=== PATIENT | female | born 1970 | race Caucasian/White ===

== ENCOUNTER 2024-10-13 08:22 | Observation (INO) ==
[2024-10-09 15:28] LABS: Basophils # (Auto) 0.02 K/mcL (0.00-0.30); Basophils % (Auto) 0.3 % (0.0-2.0); Eosinophils # (Auto) 0.17 K/mcL (0.00-0.70); Eosinophils % (Auto) 2.1 % (0.0-7.0); Hematocrit 37.9 % (34.1-44.9); Lymphocytes # (Auto) 2.76 K/mcL (1.50-4.80); Lymphocytes % (Auto) 34.9 % (15.5-49.0); Mean Cell Volume 87.7 fL (80.0-100.0); Mean Corpuscular HGB Conc 31.7 g/dL (31.0-36.0); Mean Platelet Volume 10.2 fL (8.8-12.5); Monocytes # (Auto) 0.55 K/mcL (0.10-0.90); Neutrophils % (Auto) 55.1 % (38.0-78.0); Platelet Count 226 K/mcL (140-440); RBC 4.32 M/mcL (3.59-5.38); Red Cell Distribution Width 12.7 % (11.5-14.5); WBC 7.9 K/mcL (4.5-11.0)
[2024-10-09 15:38] LABS: Prothrombin Time 13.5 sec (11.9-14.5)
[2024-10-09 15:48] LABS: ALT/SGPT 11 U/L (<40); AST/SGOT 20 U/L (<32); Albumin 4.3 gm/dL (3.2-5.2); Albumin/Globulin Ratio 1.3 (1.0-2.3); Alkaline Phosphatase 83 U/L (39-117); Bilirubin,Total 0.2 mg/dL (0.1-1.0); Blood Urea Nitrogen 18 mg/dL (6-20); Calcium 9.5 mg/dL (8.6-10.4); Carbon Dioxide 26 mmol/L (22-30); Chloride 103 mmol/L (96-108); Globulin 3.4 gm/dL (2.2-3.7); Glomerular Filtration Rate 97; Glucose 103 mg/dL (70-105); Potassium 4.5 mmol/L (3.3-5.1); Sodium 140 mmol/L (133-145)
[~2024-10-13 08:22] MED LIST: DEXAMETHASONE 10 MG/ML VIAL ONE; FAMOTIDINE/PF 20 MG/2 ML VIAL IV ONE; GLYCOPYRROLATE 0.2 MG/ML VIAL IV ONE; KETAMINE 50 MG/ML ML ONE; LIDOCAINE 2% PF 5 ML VIAL ONE; ONDANSETRON 4 MG/2 ML VIAL ONE; PROPOFOL 200 MG/20 ML VIAL IV ONE; ceFAZolin 2 GM in DEXTROSE 5% IN WATER 50 ML IV SCH; fentaNYL 100 MCG/2 ML VIAL ONE
[2024-10-13] MEDS ORDERED: MIDAZOLAM 2 MG/2 ML VIAL ONE (10:00)
[2024-10-13] MEDS: CEFEPIME 2 GM VIAL IV SCH (10:40)
[2024-10-13] MEDS: metroNIDAZOLE 500 MG/100 ML BAG IV SCH (10:41)
[2024-10-13] MEDS ORDERED: ROCURONIUM 10 MG/ML ML IV ONE ×2 (11:06)
[2024-10-13] MEDS ORDERED: SUCCINYLCHOLINE 200 MG/10 ML VIAL IV ONE (11:06)
[2024-10-13] MEDS: GENTAMICIN SULFATE 800 MG/20 ML VIAL IR ONE (11:13)
[2024-10-13] MEDS: VANCOMYCIN 1 GM VIAL TOPICAL SCH (11:13)
[2024-10-13] MEDS ORDERED: SUGAMMADEX SODIUM 200 MG/2 ML VIAL IV ONE (11:20)
[2024-10-13] MEDS ORDERED: IPRATROPIUM/ALBUTEROL 3 ML AMPUL.NEB NEB PRN (11:53)
[2024-10-13] MEDS ORDERED: ONDANSETRON 4 MG/2 ML VIAL IV PRN ×2 (11:53→12:16)
[2024-10-13] MEDS ORDERED: oxyCODONE IR 5 MG TABLET PO PRN (12:16)
[2024-10-13] MEDS: ACETAMINOPHEN 1,000 MG/100 ML BAG IV ONE (12:31)
[2024-10-13] MEDS: fentaNYL 100 MCG/2 ML VIAL IV PRN ×2 (12:43→13:59)
[2024-10-13] MEDS: METHOCARBAMOL 1,000 MG/10 ML VIAL IV PRN (12:45)
[2024-10-13] MEDS: HYDROmorphone 0.5 MG/0.5 ML SYRINGE IV PRN (12:59)
[2024-10-13] MEDS: HYDROmorphone 2 MG TABLET PO PRN (14:09)
[2024-10-13] MEDS: 0.9 % SODIUM CHLORIDE 1,000 ML IV SCH (16:08)
[2024-10-13] MEDS: PANTOPRAZOLE 40 MG VIAL IV SCH (16:08)
[2024-10-13] MEDS: METOCLOPRAMIDE 10 MG/2 ML VIAL IV SCH (17:51)
[2024-10-14 06:55] LABS: Basophils # (Auto) 0.02 K/mcL (0.00-0.30); Basophils % (Auto) 0.2 % (0.0-2.0); Eosinophils # (Auto) 0 K/mcL (0.00-0.70); Eosinophils % (Auto) 0 % (0.0-7.0); Hematocrit 33.6 % (34.1-44.9); Hemoglobin 11.2 g/dL (11.2-15.7); Lymphocytes # (Auto) 1.76 K/mcL (1.50-4.80); Lymphocytes % (Auto) 18.9 % (15.5-49.0); Mean Cell Volume 85.3 fL (80.0-100.0); Mean Corpuscular HGB Conc 33.3 g/dL (31.0-36.0); Monocytes # (Auto) 0.63 K/mcL (0.10-0.90); Monocytes % (Auto) 6.8 % (1.0-12.0); Neutrophils % (Auto) 73.6 % (38.0-78.0); Platelet Count 224 K/mcL (140-440); RBC 3.94 M/mcL (3.59-5.38); Red Cell Distribution Width 12.7 % (11.5-14.5); WBC 9.3 K/mcL (4.5-11.0)
[2024-10-14] MEDS ORDERED: METOCLOPRAMIDE 10 MG/2 ML VIAL IV SCH (18:00)
[2024-10-15 12:04] VITALS: TEMP 97.7
[2024-10-15 15:32] VITALS: O2SAT 96
== END 2024-10-15 14:35 | disposition home or self-care (01) ==
LOC: SUR 08:22 → MEDSUR 08:22
PROVIDERS: ADMIT Family Medicine Adult Medicine; ATTEND Family Medicine Adult Medicine